=== PATIENT | male | born 1970 | race Caucasian/White ===

== ENCOUNTER 2016-10-03 11:59 | Emergency (ER) | payer MEDICAID, OTHER ==
[~2016-10-03] VITALS: Ht 165.1 cm; Wt 98.0 kg
[2016-10-03] MEDS ORDERED: CYCLOBENZAPRINE 10MG TABLET PO ONE (16:45)
[2016-10-03] MEDS ORDERED: KETOROLAC 30MG/ML VIAL IM ONE (16:45)
[2016-10-03 17:15] VITALS: BP 121/71
== END 2016-10-03 17:15 | disposition home or self-care (01) ==
LOC: ER 16:47
DX: M54.5 Low back pain (principal); R20.9 Unspecified disturbances of skin sensation
CPT/HCPCS: 96372; 99283; J1885; Z7610

== ENCOUNTER 2017-08-25 01:43 | Inpatient (IN) | payer SELFPAY ==
[~2017-08-25] VITALS: Ht 175.3 cm; Wt 87.1 kg
[2017-08-25] MEDS ORDERED: ONDANSETRON HCL 4MG/2ML VIAL IV STA (02:27)
[2017-08-25] MEDS ORDERED: SODIUM CHLORIDE 0.9% 1,000 ML IV ONE (02:27)
[2017-08-25] MEDS ORDERED: MORPHINE SULFATE 4 MG/ML CPJ (NOT FOR IM USE) IV STA (02:27)
[2017-08-25 02:58] LABS: HEMATOCRIT. 45.9 % (42.0-52.0); HEMOGLOBIN. 15.2 g/dL (14.0-18.0); MEAN CORPUSCULAR HEMOGLOBIN 28.3 pg (28.0-32.0); MEAN CORPUSCULAR VOLUME 85.3 fL (80.0-94.0); MEAN PLATELET VOLUME 8.4 fl (7.4-10.4); PLATELET 300 x1000/uL (130-400); RED BLOOD CELL COUNT 5.38 mill/uL (4.7-6.1); RED CELL DISTRIBUTION WIDTH 14.5 % (11.6-14.6)
[2017-08-25 03:01] LABS: CHLORIDE 110 mEq/L (98-107); ETHANOL BLOOD < 10 mg/dL
[2017-08-25 03:04] LABS: PROTHROMBIN TIME 10.8 sec (9.4-11.6)
[2017-08-25 04:00] LABS: CLARITY URINE CLEAR (CLEAR); COLOR URINE YELLOW (YELLOW); KETONES URINE NEGATIVE (NEGATIVE); LEUKOCYTE ESTERASE URINE NEGATIVE (NEGATIVE); NITRITE URINE NEGATIVE (NEGATIVE); OCCULT BLOOD URINE NEGATIVE (NEGATIVE); PROTEIN URINE NEGATIVE (NEGATIVE); SPECIFIC GRAVITY URINE 1.025 (1.005-1.030); UROBILINOGEN URINE 0.2 E.U./dL (0.2-1.0)
[2017-08-25 04:42] LABS: PLATELET ESTIMATE NORMAL
[2017-08-25] MEDS ORDERED: METRONIDAZOLE 500 MG PREMIX 100 ML IV ONE (04:45)
[2017-08-25] MEDS ORDERED: SODIUM CHLORIDE 0.9% 1000ML BAG (SEPSIS BOLUS) IV ONE (04:45)
[2017-08-25] MEDS ORDERED: LEVOFLOXACIN 750MG PREMIX 150 ML IV ONE (04:45)
[2017-08-25 04:48] LABS: *AMPHETAMINES SCREEN URINE NEGATIVE (NEGATIVE); *BARBITURATES SCREEN URINE NEGATIVE (NEGATIVE); *COCAINE SCREEN URINE NEGATIVE (NEGATIVE); METHADONE URINE SCREEN NEGATIVE (NEGATIVE); OPIATES URINE SCREEN NEGATIVE (NEGATIVE)
[2017-08-25 04:49] LABS: CANNABINOID URINE SCREEN NEGATIVE (NEGATIVE)
[2017-08-25 04:51] LABS: *BENZODIAZEPINES SCREEN URINE NEGATIVE (NEGATIVE); PHENCYCLIDINE URINE SCREEN NEGATIVE (NEGATIVE)
[2017-08-25] MEDS ORDERED: SODIUM CHLORIDE 0.45% 1,000 ML IV SCH (05:53)
[2017-08-25] MEDS ORDERED: ONDANSETRON HCL 4MG/2ML VIAL IV PRN (06:00)
[2017-08-25] MEDS ORDERED: MORPHINE SULFATE 4 MG/ML CPJ (NOT FOR IM USE) IV PRN (06:00)
[2017-08-25] MEDS ORDERED: HYDROCODONE/ACETAMINOPHEN 10/325MG TABLET PO PRN (06:00)
[2017-08-25] MEDS ORDERED: GUAIFENESIN 200MG/10ML SUGAR FREE UDC PO PRN (06:00)
[2017-08-25] MEDS ORDERED: IPRATROPIUM/ALBUTEROL 0.5-3(2.5)MG/3ML NEB INH PRN (06:00)
[2017-08-25] MEDS ORDERED: DIPHENHYDRAMINE 50MG/ML VIAL IV PRN (06:00)
[2017-08-25] MEDS ORDERED: MAGNESIUM/ALUMINUM HYDROXIDE/SIMETHICONE 30ML UDC PO PRN (06:00)
[2017-08-25] MEDS ORDERED: ACETAMINOPHEN 325MG TABLET PO PRN (06:00)
[2017-08-25] MEDS ORDERED: LORAZEPAM 2MG/ML CPJ IV PRN (06:00)
[2017-08-25] MEDS ORDERED: CLONIDINE 0.1MG TABLET PO PRN (06:00)
[2017-08-25] MEDS ORDERED: DOCUSATE SODIUM 100MG CAPSULE PO PRN (06:00)
[2017-08-25] MEDS ORDERED: NA PHOS,M-B/NA PHOS,DI-BA ENEMA 118ML PR PRN (06:00)
[2017-08-25 08:00] VITALS: BP 105/70
[2017-08-25 08:09] VITALS: BP 100/52
[2017-08-25 10:42] LABS: CHLORIDE 113 mEq/L (98-107)
[2017-08-25] MEDS: ENOXAPARIN 40MG/0.4ML SYR SUBCUT SCH (10:51)
[2017-08-25 11:33] VITALS: BP 116/55
[2017-08-25] MEDS ORDERED: ATOR40TA70 PO (13:35)
[2017-08-25] MEDS: METRONIDAZOLE 500 MG PREMIX 100 ML IV SCH ×2 (14:05→21:32)
[2017-08-25 15:40] VITALS: BP 99/60
[2017-08-25 20:17] VITALS: BP 105/60
[2017-08-25] MEDS ORDERED: ATORVASTATIN CALCIUM 40MG TABLET PO SCH (21:00)
[2017-08-25 23:52] VITALS: BP 115/66
[2017-08-26 04:00] VITALS: BP 109/63
[2017-08-26] MEDS: METRONIDAZOLE 500 MG PREMIX 100 ML IV SCH (05:57)
[2017-08-26] MEDS ORDERED: LEVOFLOXACIN 500MG PREMIX 100 ML IV SCH (06:00)
[2017-08-26 07:22] LABS: BASOPHILS % 0.5 % (0.0-2.0); EOSINOPHILS % 4.5 % (0.0-5.0); HEMATOCRIT. 41.6 % (42.0-52.0); HEMOGLOBIN. 13.8 g/dL (14.0-18.0); LYMPHOCYTES % 35.4 % (20.0-50.0); MEAN CORPUSCULAR HEMOGLOBIN 28.8 pg (28.0-32.0); MEAN CORPUSCULAR VOLUME 86.7 fL (80.0-94.0); MEAN PLATELET VOLUME 8.5 fl (7.4-10.4); MONOCYTES % 6.8 % (2.0-8.0); NEUTROPHILS % 52.8 % (40.0-76.0); PLATELET 297 x1000/uL (130-400); RED CELL DISTRIBUTION WIDTH 14.5 % (11.6-14.6)
[2017-08-26 07:36] LABS: CHLORIDE 113 mEq/L (98-107)
[2017-08-26 07:49] VITALS: BP 105/54
[2017-08-26 08:08] LABS: HDL CHOLESTEROL 39 mg/dL (40-59); LDL CHOLESTEROL 112 mg/dL (5-100)
[2017-08-26] MEDS: ENOXAPARIN 40MG/0.4ML SYR SUBCUT SCH (09:20)
[2017-08-26 10:32] VITALS: BP 110/73
== END 2017-08-26 11:15 | disposition home or self-care (01) | DRG 249 ==
LOC: ER 01:43 → 6WST 04:47 → EDBEDREQ 04:51 → ENRESERV 05:27 → CANRESERV 05:38 → ENRESERV 05:38 → EDBEDREQSVC 06:30
PROVIDERS: ADMIT Internal Medicine; ATTEND Internal Medicine
DX: K52.9 Noninfective gastroenteritis and colitis, unspecified (principal); R65.10 Systemic inflammatory response syndrome (SIRS) of non-infectious origin without acute organ dysfunction; E78.00 Pure hypercholesterolemia, unspecified; I10 Essential (primary) hypertension; E86.0 Dehydration; K21.9 Gastro-esophageal reflux disease without esophagitis
CPT/HCPCS: 36415; 71045; 74176; 80048; 80053; 80061; 80305; 81003; 83605; 83690; 84484; 85025; 85610; 87040; 93005; G0482; J1650; J1956; J2270; J2405; J3490; J7030

== ENCOUNTER 2018-07-27 17:25 | Emergency (ER) | payer MEDICAID, OTHER ==
[~2018-07-27] VITALS: Ht 165.1 cm; Wt 93.0 kg
[~2018-07-27 17:25] MED LIST: ATOR40TA70 PO
[2018-07-27] MEDS ORDERED: KETOROLAC 30MG/ML VIAL IM ONE (22:30)
[2018-07-28 00:15] VITALS: BP 124/83
== END 2018-07-28 00:18 | disposition home or self-care (01) ==
LOC: ER 17:25
DX: M25.562 Pain in left knee (principal); M25.561 Pain in right knee; E78.00 Pure hypercholesterolemia, unspecified; Z79.899 Other long term (current) drug therapy
CPT/HCPCS: 73562; 93971; 96372; 99284; J1885; Z7610